=== PATIENT | male | born 1965 | race Caucasian/White ===

== ENCOUNTER 2020-08-18 14:59 | Inpatient (IN) | payer OTHER ==
[~2020-08-18] VITALS: Ht 180.3 cm; Wt 85.0 kg
[2020-08-18 15:55] LABS: BASOPHILS % (AUTO) 0.6 % (0.0-2.0); EOSINOPHILS % (AUTO) 2.7 % (1.0-6.0); HEMATOCRIT 45.7 % (41-53); HEMOGLOBIN 15.7 g/dL (13.5-17.5); LYMPHOCYTES # (AUTO) 2.2 K/uL (1.0-4.8); LYMPHOCYTES % (AUTO) 20.6 % (22.0-44.0); MEAN CORPUSCULAR HEMOGLOBIN 31.3 pg (26.0-34.0); MEAN CORPUSCULAR HGB CONC 34.4 G/dL (31.0-37.0); MEAN CORPUSCULAR VOLUME 91 fL (80-100); MONOCYTES # (AUTO) 0.8 K/uL (0.1-1.0); MONOCYTES % (AUTO) 7.2 % (2.0-9.0); NEUTROPHILS # (AUTO) 7.3 K/uL (1.8-7.7); NEUTROPHILS % (AUTO) 68.9 % (40.0-70.0); PLATELET COUNT (AUTO) 166 K/uL (150-450); RED BLOOD CELL COUNT(AUTO) 5.03 MIL/uL (4.50-5.90); RED CELL DISTRIBUTION WIDTH 13.5 % (11.5-14.5)
[2020-08-18 16:04] LABS: ANION GAP 9 mmol/L (8-16); CALCIUM, TOTAL 8.9 mg/dL (8.8-10.5); CARBON DIOXIDE 30 mmol/L (22-29); CHLORIDE 105 mmol/L (98-107); CREATININE 1.11 mg/dL (0.60-1.30); GLOMERULAR FILTR. RATE CALC > 60 mL/min (>60); GLUCOSE,RANDOM 112 mg/dL (70-110); POTASSIUM 4.1 mmol/L (3.5-5.1); SODIUM SERUM 144 mmol/L (136-145); UREA NITROGEN, BLOOD 22 mg/dL (7-18)
[2020-08-18] MEDS ORDERED: PHENY100 PO (16:08)
[2020-08-18] MEDS ORDERED: AMLO2.5T96 PO (16:08)
[2020-08-18] MEDS ORDERED: LISI-892 PO (16:08)
[2020-08-18] MEDS ORDERED: IBUP-2759 PO (16:08)
[2020-08-18] MEDS ORDERED: ASPI81TA87 PO (16:08)
[2020-08-18 16:10] LABS: ALANINE AMINOTRANSFERASE 20 U/L (12-78); ALKALINE PHOSPHATASE 84 U/L (46-116); ASPARTATE AMINOTRANSFERASE 14 U/L (15-37); BILIRUBIN,TOTAL 0.5 mg/dL (0.1-1.0); TOTAL PROTEIN, SERUM 7.5 g/dL (6.4-8.2)
[2020-08-18] MEDS ORDERED: NAPROXEN 250 MG TABLET PO ONE (16:45)
[2020-08-18 18:21] VITALS: BP 189/89
[2020-08-18 19:00] LABS: COVID AG,FIA SOURCE NASAL SWAB
[2020-08-18] MEDS ORDERED: MAGNESIUM HYDROXIDE SUSPENSION 30 ML UDCUP PO PRN (19:00)
[2020-08-18] MEDS ORDERED: LOPERAMIDE HCL 2 MG CAPSULE PO PRN (19:00)
[2020-08-18] MEDS ORDERED: CloNIDine HCL 0.1 MG TABLET PO PRN (19:00)
[2020-08-18] MEDS ORDERED: NICOTINE 14 MG/24 HOUR PATCH TD PRN (19:00)
[2020-08-18] MEDS ORDERED: GuaiFENesin/D-METHORPHAN [SUGAR-FREE] 200-20MG/10 ML SYRUP UDCUP PO PRN (19:00)
[2020-08-18] MEDS ORDERED: IBUPROFEN 200 MG TABLET PO PRN (19:00)
[2020-08-18] MEDS ORDERED: DOCUSATE SODIUM 100 MG CAPSULE PO PRN (19:00)
[2020-08-18] MEDS ORDERED: ACETAMINOPHEN 325 MG TABLET PO PRN (19:00)
[2020-08-18] MEDS ORDERED: PETROLATUM,WHITE 28 GM JELLY TP PRN (19:00)
[2020-08-18] MEDS ORDERED: ONDANSETRON HCL 4 MG TABLET PO PRN (19:00)
[2020-08-18] MEDS ORDERED: MAG HYDROX/AL HYDROX/SIMETH ES 30 ML SUSPENSION UDCUP PO PRN (19:00)
[2020-08-18] MEDS ORDERED: ALBUTEROL SULFATE HFA 90 MCG/PUFF 8 GM INHALER IH PRN (19:00)
[2020-08-18 19:35] VITALS: BP 151/87
[2020-08-18] MEDS: PHENYTOIN SODIUM 100 MG ER CAPSULE PO SCH (20:16)
[2020-08-18] MEDS: IBUPROFEN 400 MG TABLET PO PRN (20:18)
[2020-08-19 03:58] VITALS: BP 119/69
[2020-08-19 07:34] VITALS: BP 125/80
[2020-08-19] MEDS: ASPIRIN 81 MG DR TABLET PO SCH (07:58)
[2020-08-19] MEDS: AmLODIPine BESYLATE 2.5 MG TABLET PO SCH (07:58)
[2020-08-19] MEDS: PHENYTOIN SODIUM 100 MG ER CAPSULE PO SCH ×2 (07:58→20:09)
[2020-08-19] MEDS: LISINOPRIL 5 MG TABLET PO SCH (07:58)
[2020-08-19] MEDS: MIRTAZAPINE 15 MG TABLET PO SCH (20:09)
[2020-08-19 20:15] VITALS: BP 144/74
[2020-08-20 04:22] VITALS: BP 132/73
[2020-08-20 08:10] VITALS: BP 131/80
[2020-08-20] MEDS: ASPIRIN 81 MG DR TABLET PO SCH (08:58)
[2020-08-20] MEDS: LISINOPRIL 5 MG TABLET PO SCH (08:58)
[2020-08-20] MEDS: AmLODIPine BESYLATE 2.5 MG TABLET PO SCH (08:58)
[2020-08-20] MEDS: PHENYTOIN SODIUM 100 MG ER CAPSULE PO SCH ×2 (08:58→20:04)
[2020-08-20 19:33] VITALS: BP 130/76
[2020-08-20] MEDS: MIRTAZAPINE 15 MG TABLET PO SCH (20:04)
[2020-08-21 04:46] VITALS: BP 112/67
[2020-08-21 08:07] VITALS: BP 137/83
[2020-08-21] MEDS: LISINOPRIL 5 MG TABLET PO SCH (08:16)
[2020-08-21] MEDS: AmLODIPine BESYLATE 2.5 MG TABLET PO SCH (08:16)
[2020-08-21] MEDS: PHENYTOIN SODIUM 100 MG ER CAPSULE PO SCH (08:16)
[2020-08-21] MEDS: ASPIRIN 81 MG DR TABLET PO SCH (08:16)
[2020-08-21] MEDS: IBUPROFEN 400 MG TABLET PO PRN (11:52)
[2020-08-21] MEDS ORDERED: MOTRIN PO (13:09)
== END 2020-08-21 14:00 | DRG 556 ==
LOC: EMS 15:04 → 6S 18:10
PROVIDERS: ADMIT Internal Medicine; ATTEND Internal Medicine
DX: M25.512 Pain in left shoulder (principal); R45.851 Suicidal ideations; F33.2 Major depressive disorder, recurrent severe without psychotic features; I10 Essential (primary) hypertension; G40.909 Epilepsy, unspecified, not intractable, without status epilepticus; Z20.822 Contact with and (suspected) exposure to COVID-19; F17.210 Nicotine dependence, cigarettes, uncomplicated; F41.9 Anxiety disorder, unspecified
CPT/HCPCS: 87426; 97165; 97535; 99285